=== PATIENT | female | born 1945 | race Caucasian/White ===

== ENCOUNTER 2020-01-01 17:00 | Emergency (ER) | payer SELFPAY ==
[~2020-01-01] VITALS: Ht 162.6 cm; Wt 90.7 kg
[2020-01-01 17:08] VITALS: BP 146/71
[2020-01-01] MEDS ORDERED: IBUP-51 PO (17:08)
[2020-01-01] MEDS ORDERED: NAPROXEN 500 MG TABLET PO SCH (18:00)
[2020-01-01] MEDS ORDERED: HYDROCODONE/APAP 5/325MG TABLET PO ONE (18:00)
[2020-01-01] MEDS ORDERED: HYDROCODONE/APAP 5/325MG TABLET ONE (18:08)
[2020-01-01] MEDS ORDERED: NAPROXEN 250 MG TABLET ONE (18:09)
--- NOTE | 2020-01-01 18:15 | NUR ---
PATIENT CAME BACK FROM RESTROOM. NO DISTRESS NOTED.
--- NOTE | 2020-01-01 19:22 | NUR ---
CD REPORT GIVEN TO THE PATIENT.
== END 2020-01-01 19:58 | disposition home or self-care (01) ==
LOC: ER 17:04
DX: M77.32 Calcaneal spur, left foot (principal); M79.672 Pain in left foot; Z79.899 Other long term (current) drug therapy
CPT/HCPCS: 73630-TC; 73650-TC

== ENCOUNTER 2020-10-01 14:03 | Inpatient (IN) | payer SELFPAY ==
[~2020-10-01] VITALS: Ht 152.4 cm; Wt 86.2 kg
[~2020-10-01 14:03] MED LIST: IBUP-51 PO
[2020-10-01] MEDS ORDERED: IV NS 0.9% 500 ML BAG IV ONE (14:30)
--- NOTE | 2020-10-01 14:52 | NUR ---
MOVE SHEET SUBMITTED.
[2020-10-01 14:55] LABS: BASOPHILS % (AUTO) 0.6 % (0.0-2.0); EOSINOPHILS % (AUTO) 2.4 % (0.0-6.0); HEMATOCRIT 40 % (33-45); HEMOGLOBIN 13.2 g/dL (11.5-14.8); LYMPHOCYTES # (AUTO) 1.8 K/uL (0.8-4.8); LYMPHOCYTES % (AUTO) 34.8 % (20.0-44.0); MEAN CORPUSCULAR HGB CONC 33 g/dl (31.0-36.0); MEAN CORPUSCULAR VOLUME 86 fL (82-100); MONOCYTES # (AUTO) 0.4 K/uL (0.1-1.30); MONOCYTES % (AUTO) 7.2 % (2.0-12.0); NEUTROPHILS # (AUTO) 2.8 K/uL (1.8-8.9); PLATELET COUNT (AUTO) 359 K/uL (150-450); RED BLOOD CELL COUNT(AUTO) 4.72 MIL/uL (4.0-5.2); WHITE BLOOD COUNT (AUTO) 5.1 K/uL (4.3-11.0)
[2020-10-01] MEDS ORDERED: CLOP75TA15 PO (15:01)
[2020-10-01] MEDS ORDERED: GABA-532 PO (15:01)
[2020-10-01 15:11] LABS: ALANINE AMINOTRANSFERASE 19 U/L (12-78); ALBUMIN 3.6 g/dL (3.4-5.0); ALKALINE PHOSPHATASE 93 U/L (46-116); ASPARTATE AMINOTRANSFERASE 13 U/L (15-37); BILIRUBIN,DIRECT 0.1 mg/dL (0.0-0.2); BILIRUBIN,TOTAL 0.4 mg/dL (0.2-1.0); CARBON DIOXIDE 28 mmol/L (21-32); CHLORIDE 108 mmol/L (98-107); CREATININE 0.9 mg/dL (0.6-1.3); GLUCOSE 103 mg/dL (74-106); POTASSIUM 3.7 mmol/L (3.5-5.1); SODIUM SERUM 145 mmol/L (136-145); TOTAL PROTEIN, SERUM 7.8 g/dL (6.4-8.2); UREA NITROGEN, BLOOD 17 mg/dL (7-18)
[2020-10-01] MEDS ORDERED: MAGNESIUM HYDROXIDE 30 ML UDC PO PRN (16:30)
[2020-10-01] MEDS ORDERED: HYDROCODONE/APAP 5/325MG TABLET PO PRN (16:30)
[2020-10-01] MEDS ORDERED: TEMAZEPAM 15 MG CAPSULE PO PRN (16:30)
[2020-10-01] MEDS ORDERED: MAG HYDROX/AL HYDROX/SIMETH 30 ML UDC PO PRN (16:30)
[2020-10-01] MEDS ORDERED: Z GUARD REMEDY 2 OZ OINT TP PRN (16:30)
[2020-10-01] MEDS ORDERED: ACETAMINOPHEN 325 MG TABLET PO PRN (16:30)
[2020-10-01] MEDS ORDERED: ONDANSETRON HCL/PF 4 MG/2 ML VIAL IVP PRN (16:30)
--- NOTE | 2020-10-01 19:30 | NUR ---
RECEVIED REPORT FROM DAY SHIFT FOR SALVADOR. PATIENT VSS, WILL CONTINUE TO MONITOR.
--- NOTE | 2020-10-01 21:26 | NUR ---
REPORT GIVEN TO DELIA MANUEL
[2020-10-01 22:00] VITALS: BP 112/70
--- NOTE | 2020-10-01 22:00 | NUR ---
PATIENT TRANSFERRED TO [facility], PATIENT IN NO ACUTE DISTRESS.
[2020-10-01] MEDS: GABAPENTIN 100 MG CAPSULE PO SCH (23:30)
[2020-10-01] MEDS: ENOXAPARIN SODIUM 40 MG/0.4 ML DISP.SYRIN SQ SCH (23:31)
--- NOTE | 2020-10-02 06:02 | NUR ---
MS RN CLOSING NOTES: PATIENT IN BED,ASLEEP,EASILY AROUSABLE. NO S/S OF DISTRESS NOTED. CALL LIGHT WITHIN REACH. BED ALARM ON. BED IN LOWEST AND LOCKED POSITION. AMBULATORY, WITH UNSTEADY GAIT, OFFERED A BEDSIDE COMMODE , PATIENT DECLINED, WANTS TO USE THE TOILET. ASSISTED TO THE BATHROOM AND BACK TO THE BED.
[2020-10-02 07:30] LABS: BASOPHILS % (AUTO) 0.7 % (0.0-2.0); EOSINOPHILS % (AUTO) 3.3 % (0.0-6.0); HEMATOCRIT 38 % (33-45); HEMOGLOBIN 12.5 g/dL (11.5-14.8); LYMPHOCYTES # (AUTO) 2.6 K/uL (0.8-4.8); LYMPHOCYTES % (AUTO) 48.3 % (20.0-44.0); MEAN CORPUSCULAR HGB CONC 33 g/dl (31.0-36.0); MEAN CORPUSCULAR VOLUME 85 fL (82-100); MONOCYTES # (AUTO) 0.4 K/uL (0.1-1.30); MONOCYTES % (AUTO) 8.1 % (2.0-12.0); NEUTROPHILS # (AUTO) 2.1 K/uL (1.8-8.9); NEUTROPHILS % (AUTO) 39.6 % (43.0-81.0); PLATELET COUNT (AUTO) 341 K/uL (150-450); RED BLOOD CELL COUNT(AUTO) 4.49 MIL/uL (4.0-5.2); WHITE BLOOD COUNT (AUTO) 5.3 K/uL (4.3-11.0)
--- NOTE | 2020-10-02 07:47 | NUR ---
MS RN OPENING NOTES RECEIVED PATIENT IN BED, ASLEEP. PATIENT ON ROOM AIR; BREATHING EVEN AND UNLABORED AT THIS TIME, NO SOB PRESENT. NO S/S OF PAIN SUCH FACIAL GRIMACING, MOANING OR GUARDING NOTED. RAC IV ACCESS;SL PRESENT. SAFETY PRECAUTIONS IN PLACE; BED IN LOW POSITION AND LOCKED, RAILS UP X2, CALL LIGHT WITHIN REACH. WILL CONTINUE TO MONITOR PATIENT.
[2020-10-02 07:54] LABS: CALCIUM, SERUM 8.7 mg/dL (8.5-10.1); CREATININE 0.6 mg/dL (0.6-1.3); MAGNESIUM 2.3 mg/dL (1.8-2.4); PHOSPHORUS 3.8 mg/dL (2.5-4.9); POTASSIUM 3.4 mmol/L (3.5-5.1)
[2020-10-02 08:00] VITALS: BP 126/67
[2020-10-02 08:02] LABS: THYROID STIMULATING HORMONE 1.042 uIU/mL (0.358-3.74)
[2020-10-02] MEDS: GABAPENTIN 100 MG CAPSULE PO SCH ×3 (08:18→16:06)
[2020-10-02] MEDS: PANTOPRAZOLE 40 MG TABLET.DR PO SCH (08:18)
[2020-10-02] MEDS: CLOPIDOGREL BISULFATE 75 MG TABLET PO SCH (08:18)
[2020-10-02] MEDS ORDERED: POTASSIUM CHLORIDE 20 MEQ TAB.PRT.SR PO ONE (10:00)
--- NOTE | 2020-10-02 11:44 | NUR ---
MS RN NOTES PATIENT IS ONLY MONGOLIAN SPEAKING; CALLED FAMILY FOR TRANSLATION REGARDING MRI OF THE BRAIN. DAUGHTER HAS POOR [place]VI[place] WELL AND ASKED HER UNCLE TO TRANSLATE. PATIENT AND FAMILY WANT SOMEONE PRESENT TO SIGN THE MRI CONSENT AND ALSO TO ACCOMPANY HER TO THE PROCEDURE. MRI NOTIFIED.
[2020-10-02 16:00] VITALS: BP 104/55
--- NOTE | 2020-10-02 16:20 | NUR ---
MS RN NOTES PATIENT LEFT FOR MRI
--- NOTE | 2020-10-02 18:41 | NUR ---
MS RN CLOSING NOTES PATIENT REMAINS IN BED, AWAKE, WITH FAMILY AT BEDSIDE. PATIENT ON ROOM AIR; BREATHING EVEN AND UNLABORED AT THIS TIME, NO SOB PRESENT. NO COMPLAINS OF PAIN DURING THE DAY. RAC IV ACCESS;SL PRESENT. ALL NEEDS ATTENDED DURING THE DAY. SAFETY PRECAUTIONS IN PLACE; BED IN LOW POSITION AND LOCKED, RAILS UP X2, CALL LIGHT WITHIN REACH. WILL ENDORSE TO MESH MAN NURSE.
--- NOTE | 2020-10-02 19:15 | NUR ---
MS RN OPENING NOTES: RECEIVED PATIENT IN BED, AWAKE, SITTING AT THE EDGE OF THE BED EATING DINNER WITH THE DAUGHTER AT THE BEDSIDE. NO S/S OF DISTRESS NOTED. CALL LIGHT WITHIN REACH. BED IN LOWEST AND LOCKED POSITION. INSTRUCTED DAUGHTER TO TELL THE PATIENT TO USE THE WALKER WHEN OOB AND TO CALL FOR ASSISTANCE WHEN OOB,PATIENT VERBALIZED UNDERSTANDING.
[2020-10-02 20:00] VITALS: BP 118/82
[2020-10-02] MEDS: ENOXAPARIN SODIUM 40 MG/0.4 ML DISP.SYRIN SQ SCH (22:03)
--- NOTE | 2020-10-03 05:56 | NUR ---
PATIENT REFUSED THE LAB DRAW THIS MORNING, CALLED THE DAUGHTER EDGARDO TO TRANSLATE AND TO ENCOURAGE THE PATIENT. PATIENT STILL REFUSED. MD WILL NOTIFY.
--- NOTE | 2020-10-03 06:49 | NUR ---
MS RN CLOSING NOTES: PATIENT IS RESTING IN BED, A/O X3. NO S/S OF DISTRESS NOTED.CALL LIGHT WITHIN REACH. BED ALARM ON. BED IN LOWEST AND LOCKED POSITION. AMBULATORY WITH WALKER, STEADY GAIT. NO COMPLAIN OF PAIN.
--- NOTE | 2020-10-03 07:30 | NUR ---
on rounds find pt. alert and oriented x3,mohawk speaking.no complaints offered.trying to get oob,attempted to set bed alarm and pt. fighting nurse.
[2020-10-03 08:00] VITALS: BP 131/85
[2020-10-03] MEDS: GABAPENTIN 100 MG CAPSULE PO SCH (09:35)
[2020-10-03] MEDS: PANTOPRAZOLE 40 MG TABLET.DR PO SCH (09:35)
[2020-10-03] MEDS: CLOPIDOGREL BISULFATE 75 MG TABLET PO SCH (09:35)
--- NOTE | 2020-10-03 10:15 | NUR ---
noted no hep lock rt.ac,apparently pt. removed.pt. continually trying to get oob.
--- NOTE | 2020-10-03 10:25 | NUR ---
vandana bach printing press operator apprentice in and dc order given.pt. on phone calling dtr.dtr. here given all dc instructions,all papers signed.lab here drawing earlier labs pt. had refused.given all papers including rxs.taken to lobby via w/c acc. by dtr. and faculty head.
[2020-10-03 11:46] LABS: CALCIUM, SERUM 8.8 mg/dL (8.5-10.1); CREATININE 0.8 mg/dL (0.6-1.3); POTASSIUM 3.5 mmol/L (3.5-5.1)
== END 2020-10-03 10:30 | disposition home or self-care (01) | DRG 948 ==
LOC: ER 14:05 → TELE 21:10 → MED 22:21
PROVIDERS: ADMIT Nurse Practitioner Acute Care; ATTEND Nurse Practitioner Acute Care
DX: R53.1 Weakness (principal); E66.9 Obesity, unspecified; Z68.32 Body mass index [BMI] 32.0-32.9, adult; Z91.81 History of falling; Z79.02 Long term (current) use of antithrombotics/antiplatelets; Z79.899 Other long term (current) drug therapy; Z98.890 Other specified postprocedural states; I67.2 Cerebral atherosclerosis; I70.0 Atherosclerosis of aorta
CPT/HCPCS: 36415; 70450-TC; 70551-TC; 71045-TC; 80048-TC; 80061-TC; 80076-TC; 82962-TC; 83735-TC; 83880; 84100-TC; 84443-TC; 84484-TC; 85025-TC; 87081-TC; 93307-TC; 97112-TC; 97116-TC; 97530-TC; C9803; G0378; J1650; J7040

== ENCOUNTER 2021-02-02 15:55 | Emergency (ER) | payer MEDICAID ==
[~2021-02-02] VITALS: Ht 152.4 cm; Wt 65.8 kg
[~2021-02-02 15:55] MED LIST changes: +CLOP75TA15 PO; +GABA-532 PO; -IBUP-51 PO
[2021-02-02 16:10] VITALS: BP 132/79
[2021-02-02] MEDS ORDERED: ATOR20TA PO (16:23)
== END 2021-02-02 16:35 | disposition home or self-care (01) ==
LOC: EDUNIT# 15:55 → ER 15:58
DX: Z76.0 Encounter for issue of repeat prescription (principal); Z79.899 Other long term (current) drug therapy; Z86.73 Personal history of transient ischemic attack (TIA), and cerebral infarction without residual deficits

== ENCOUNTER 2021-03-17 22:00 | Emergency (ER) | payer MEDICAID ==
[~2021-03-17] VITALS: Ht 170.2 cm; Wt 74.8 kg
[~2021-03-17 22:00] MED LIST changes: +ATOR20TA PO
[2021-03-17 22:15] VITALS: BP 135/69
[2021-03-17] MEDS ORDERED: ATOR20TA PO (22:28)
--- NOTE | 2021-03-17 22:33 | NUR ---
Patient discharged to home in stable condition. Written and verbal after care instructions given. Patient verbalizes understanding of instruction. RX GIVEN
== END 2021-03-18 05:20 | disposition home or self-care (01) ==
LOC: ER 22:01
DX: Z76.0 Encounter for issue of repeat prescription (principal); Z86.73 Personal history of transient ischemic attack (TIA), and cerebral infarction without residual deficits; Z79.899 Other long term (current) drug therapy

== ENCOUNTER 2021-05-01 17:30 | Inpatient (IN) | payer MEDICAID ==
[~2021-05-01] VITALS: Ht 157.5 cm; Wt 81.6 kg
--- NOTE | 2021-05-01 17:42 | NUR ---
BIB DAUGHTER C/O DIZZINESS, FOREHEAD INJURY S/P GLF. PER PT DAUGHTER PT HAVING FREQUENT FALLS FOR THE PAST MONTH. DENIES PAIN. IN ROOM AIR AND DENIES SOB. RESPIRATION REGULAR AND UNLABORED. ATTACHED TO THE MONITOR. WARM BLANKET PROVIDED FOR COMFORT. WILL CONTINUE TO MONITOR THE PATIENT.
--- NOTE | 2021-05-01 17:43 | NUR ---
SALINE LOCK ESTABLISHED, BLOOD DRAWN AND CALLED LAB FOR PUTTY WORKER
--- NOTE | 2021-05-01 17:52 | NUR ---
COVID ANTIGEN SWAB DONE AND SENT TO THE LAB
--- NOTE | 2021-05-01 18:10 | NUR ---
THE PATIENT IS TAKEN TO CT VIA W/CHAIR
[2021-05-01 18:15] LABS: BASOPHILS % (AUTO) 0.8 % (0.0-2.0); EOSINOPHILS % (AUTO) 1.7 % (0.0-6.0); HEMATOCRIT 38 % (33-45); HEMOGLOBIN 12.4 g/dL (11.5-14.8); LYMPHOCYTES # (AUTO) 2.2 K/uL (0.8-4.8); LYMPHOCYTES % (AUTO) 42.1 % (20.0-44.0); MEAN CORPUSCULAR HGB CONC 33 g/dl (31.0-36.0); MEAN CORPUSCULAR VOLUME 84 fL (82-100); MONOCYTES # (AUTO) 0.4 K/uL (0.1-1.30); MONOCYTES % (AUTO) 6.9 % (2.0-12.0); NEUTROPHILS # (AUTO) 2.6 K/uL (1.8-8.9); NEUTROPHILS % (AUTO) 48.5 % (43.0-81.0); PLATELET COUNT (AUTO) 412 K/uL (150-450); RED BLOOD CELL COUNT(AUTO) 4.53 MIL/uL (4.0-5.2); WHITE BLOOD COUNT (AUTO) 5.3 K/uL (4.3-11.0)
--- NOTE | 2021-05-01 18:15 | NUR ---
THE PATIENT IS BACK FROM CT VIA W/CHAIR
[2021-05-01 18:36] LABS: CALCIUM, SERUM 9.1 mg/dL (8.5-10.1); CARBON DIOXIDE 29 mmol/L (21-32); CHLORIDE 102 mmol/L (98-107); CREATININE 0.9 mg/dL (0.6-1.3); GLUCOSE 145 mg/dL (74-106); POTASSIUM 3.8 mmol/L (3.5-5.1); SODIUM SERUM 135 mmol/L (136-145); UREA NITROGEN, BLOOD 23 mg/dL (7-18)
[2021-05-01 18:41] LABS: ALANINE AMINOTRANSFERASE 18 U/L (12-78); ALBUMIN 3.7 g/dL (3.4-5.0); ALKALINE PHOSPHATASE 102 U/L (46-116); ASPARTATE AMINOTRANSFERASE 12 U/L (15-37); BILIRUBIN,DIRECT 0.1 mg/dL (0.0-0.2); BILIRUBIN,TOTAL 0.6 mg/dL (0.2-1.0); TOTAL PROTEIN, SERUM 7.9 g/dL (6.4-8.2)
--- NOTE | 2021-05-01 18:46 | NUR ---
URINE COLLECTED AND SENT TO LAB
--- NOTE | 2021-05-01 18:46 | NUR ---
WHEELED OUT VIA RNEY FOR CT SCAN
[2021-05-01] MEDS ORDERED: IV NS 0.9% 1,000 ML BAG IV ONE (19:00)
--- NOTE | 2021-05-01 19:14 | NUR ---
REPORT GIVEN TO NURSE CHEEK FOR SALVDAOR
[2021-05-01 19:22] LABS: BILIRUBIN,URINE NEGATIVE (NEGATIVE); COLOR,URINE YELLOW (YELLOW); LEUKOCYTE ESTERASE ,URINE NEGATIVE (NEGATIVE); NITRITE, URINE NEGATIVE (NEGATIVE); PROTEIN,URINE NEGATIVE (NEGATIVE); UGLUCOSE NEGATIVE (NEGATIVE); UROBILINOGEN,URINE 0.2 EU/dL (0.2)
[2021-05-01 19:40] LABS: BACTERIA,URINE None seen /HPF (None Seen); WBC,URINE 0-2 /HPF (0-3)
[2021-05-01] MEDS ORDERED: MAGNESIUM HYDROXIDE 30 ML UDC PO PRN (20:00)
[2021-05-01] MEDS ORDERED: Z GUARD REMEDY 4 OZ OINT TP PRN (20:00)
[2021-05-01] MEDS ORDERED: ONDANSETRON HCL/PF 4 MG/2 ML VIAL IVP PRN (20:00)
[2021-05-01] MEDS ORDERED: ACETAMINOPHEN 325 MG TABLET PO PRN (20:00)
[2021-05-01] MEDS ORDERED: MAG HYDROX/AL HYDROX/SIMETH 30 ML UDC PO PRN (20:00)
--- NOTE | 2021-05-01 20:28 | NUR ---
RECIEVED BED 323-2
--- NOTE | 2021-05-01 20:32 | NUR ---
UPDATED BED: 307-2
--- NOTE | 2021-05-01 20:37 | NUR ---
REPORT GIVEN TO JOHAN CastellanosW RN FOR SALVADOR
[2021-05-01 21:30] VITALS: BP 132/72
--- NOTE | 2021-05-01 21:30 | NUR ---
SENIOR SUPPORT ENGINEERPHYSICAL THERAPY AID NOTES RECEIVED FROM ER PER KYRA THIS 75 Y.O. FEMALE,ALERT,ORIENTED X1-2,CONFUSED,S/P GROUND LEVEL FALL AT HOME,DX-HEAD TRAUMA,OBESE,WEIGHT 180 LBS,WITH UNSTEADY GAIT,SALINE LOCK LEFT AC INTACT AND PATENT.NOTED BRUISE ON FOREHEAD,LEFT FOREARM,SKIN ABRASION ON LEFT ELBOW SUSTAINED FROM FALL.PER HISTORY FROM DAUGHTER,PATIENT HAS FREQUENT FALL FOR THE PAST MONTHS.ORIENTED TO ROOM SET UP.FALL PRECAUTION OBSERVED,BED ALARM TRIGGERED,BED ON LOWEST POSITION AND LOCKED,CALL LIGHT IN REACH,NEEDS ANTICIPATED.
--- NOTE | 2021-05-01 21:32 | NUR ---
PT TAKEN TO 3W 307 VIA ACLS PROTOCOL. VSS. PT TOLERATED TRANSFER WELL
--- NOTE | 2021-05-01 22:00 | NUR ---
BURSAR NOTES STARTED ON LIPITOR 20MG PO,TAKEN WELL.
[2021-05-01] MEDS: ATORVASTATIN 10 MG TABLET PO SCH (22:20)
[2021-05-02] VITALS: BP 126/72
--- NOTE | 2021-05-02 | NUR ---
DESIGN CHECKER NOTES CALL FREQUENTLY TO USE THE BATHROOM,UNSTEADY GAIT,REFUSED TO USE THE BEDSIDE COMMODE.WALK TO THE RESTROOM WITH WALKER WITH ASSIST.
[2021-05-02] MEDS ORDERED: QUETIAPINE FUMARATE 25 MG TABLET PO ONE (02:00)
--- NOTE | 2021-05-02 02:00 | NUR ---
RESEARCH AND EVALUATION ANALYST NOTES CALL LIKE EVERY FIVE MINUTES,VERY RESTLESS,HOSPITALIST GAS GOLF CART REPAIRER MADE AWARE,WITH NEW ORDER NOTED AND CARRIED OUT.
--- NOTE | 2021-05-02 02:41 | NUR ---
MS RN NOTES RESTLESS,GIVEN SEROQUEL 25MG PO X 1 DOSE ORDERED BY HOSPITALIST RADHAMES
[2021-05-02 04:00] VITALS: BP 120/76
--- NOTE | 2021-05-02 06:45 | NUR ---
CARTON FOLDER NOTES SLEEPING THIS TIME,MORNING BLOOD DRAW REFUSED,FALL RISK,MIGHT NEEDS SITTER FOR SAFETY.SALINE LOCK RIGHT AC INTACT AND PATENT. IN NO ACUTE DISTRESS.
--- NOTE | 2021-05-02 07:30 | NUR ---
CAUSTIC LOADER OPENING NOTES. RECEIVED PATIENT IN BED AWAKE. ALERT AND ORIENTED TIMES 2-3 WITH EPISODES OF CONFUSION. TURKISH SPEAKER. ASSISTED HER TO BATHROOM WITH WALKER FOR URINATION. ABLE TO WALK WITH WALKER AND ASSISTANCE. NO PAIN NOTED. NO DISTRESS NOTED. IV SITE ON THE LEFT AC # 20 INTACT. ON TELE MONITOR. BRUISE NOTED ON HER FOREHEAD AND LEFT FOREARM. SKIN ABRASION NOTED ON THE LEFT ELBOW. BED LOCKED IN THE LOWEST POSITION, SIDE RAILS UP TIMES 2. CALL LIGHT AND TABLE WITHIN REACH. NEURO CHECKS DONE. NO NAUSEA NO VOMITING NOTED. WILL CONTINUE TO MONITOR.
[2021-05-02 08:11] VITALS: BP 142/72
[2021-05-02] MEDS: GABAPENTIN 100 MG CAPSULE PO SCH ×3 (08:23→16:44)
[2021-05-02] MEDS ORDERED: PANTOPRAZOLE 40 MG VIAL IV SCH (09:00)
[2021-05-02 09:56] LABS: BASOPHILS % (AUTO) 0.7 % (0.0-2.0); EOSINOPHILS % (AUTO) 2.8 % (0.0-6.0); HEMATOCRIT 37 % (33-45); HEMOGLOBIN 11.8 g/dL (11.5-14.8); LYMPHOCYTES # (AUTO) 2.6 K/uL (0.8-4.8); LYMPHOCYTES % (AUTO) 48.9 % (20.0-44.0); MEAN CORPUSCULAR HGB CONC 32 g/dl (31.0-36.0); MEAN CORPUSCULAR VOLUME 84 fL (82-100); MONOCYTES # (AUTO) 0.6 K/uL (0.1-1.30); MONOCYTES % (AUTO) 10.4 % (2.0-12.0); NEUTROPHILS % (AUTO) 37.2 % (43.0-81.0); PLATELET COUNT (AUTO) 370 K/uL (150-450); RED BLOOD CELL COUNT(AUTO) 4.34 MIL/uL (4.0-5.2); WHITE BLOOD COUNT (AUTO) 5.4 K/uL (4.3-11.0)
[2021-05-02 10:30] LABS: CALCIUM, SERUM 8.9 mg/dL (8.5-10.1); CREATININE 0.8 mg/dL (0.6-1.3); PHOSPHORUS 3.9 mg/dL (2.5-4.9); POTASSIUM 3.2 mmol/L (3.5-5.1)
[2021-05-02 10:37] LABS: THYROID STIMULATING HORMONE 1.697 uIU/mL (0.358-3.74)
[2021-05-02 12:08] VITALS: BP 118/72
[2021-05-02] MEDS ORDERED: POTASSIUM CHLORIDE 20 MEQ TAB.PRT.SR PO SCH (13:30)
[2021-05-02 16:33] VITALS: BP 114/61
[2021-05-02] MEDS: MIDODRINE HCL (5MG) 5 MG TABLET PO SCH (16:43)
--- NOTE | 2021-05-02 18:46 | NUR ---
ATHLETIC EQUIPMENT CUSTODIAN CLOSING NOTES. PATIENT IN BED AWAKE. ALERT AND ORIENTED TIMES 2-3 WITH EPISODES OF CONFUSION. ESTONIAN SPEAKER. ASSISTED HER TO BATHROOM WITH WALKER FOR URINATION. ABLE TO WALK WITH WALKER AND ASSISTANCE. NO PAIN NOTED. NO DISTRESS NOTED. IV SITE ON THE LEFT AC # 20 INTACT. ON TELE MONITOR. BRUISE NOTED ON HER FOREHEAD AND LEFT FOREARM. SKIN ABRASION NOTED ON THE LEFT ELBOW. BED LOCKED IN THE LOWEST POSITION, SIDE RAILS UP TIMES 2. CALL LIGHT AND TABLE WITHIN REACH. NEURO CHECKS DONE. NO NAUSEA NO VOMITING NOTED. ALL DUE MEDS GIVEN ORDERED .WILL ENDORSE INCOMING NURSE FOR SALVADOR.
--- NOTE | 2021-05-02 19:30 | NUR ---
SPECIAL DIET COOK NOTES RECEIVED LAYING ON BED A/O X2-3,WITH EPISODE OF CONFUSION,REFUSED TELE BOX FOR MONITORING,ON STANDBY MODE,SALINE LOCK LEFT AC INTACT AND PATENT.AMBULATE WITH WALKER AND ASSISTED TO THE RESTROOM.MORE ALERT,CAN REALLY COMMUNICATE IN [place].ALWAYS ON THE PHONE TALKING TO HER DAUGHTER.FALL PRECAUTION OBSERVED,BED ON LOW POSITION AND LOCKED,BED ALARM,CALL LIGHT IN REACH,NEEDS ANTICIPATED.
[2021-05-02 20:00] VITALS: BP 129/73
[2021-05-02] MEDS: ATORVASTATIN 10 MG TABLET PO SCH (23:01)
[2021-05-03] VITALS (8 sets, daily range): BP systolic 104–134; BP diastolic 62–81
[2021-05-03 05:56] LABS: BASOPHILS # (AUTO) 0.1 K/uL (0.0-0.2); BASOPHILS % (AUTO) 1.6 % (0.0-2.0); EOSINOPHILS % (AUTO) 2.2 % (0.0-6.0); HEMATOCRIT 39 % (33-45); HEMOGLOBIN 12.8 g/dL (11.5-14.8); LYMPHOCYTES # (AUTO) 2.8 K/uL (0.8-4.8); LYMPHOCYTES % (AUTO) 48.4 % (20.0-44.0); MEAN CORPUSCULAR HGB CONC 33 g/dl (31.0-36.0); MEAN CORPUSCULAR VOLUME 84 fL (82-100); MONOCYTES # (AUTO) 0.4 K/uL (0.1-1.30); MONOCYTES % (AUTO) 7.2 % (2.0-12.0); NEUTROPHILS # (AUTO) 2.4 K/uL (1.8-8.9); NEUTROPHILS % (AUTO) 40.6 % (43.0-81.0); PLATELET COUNT (AUTO) 428 K/uL (150-450); RED BLOOD CELL COUNT(AUTO) 4.64 MIL/uL (4.0-5.2); WHITE BLOOD COUNT (AUTO) 5.8 K/uL (4.3-11.0)
--- NOTE | 2021-05-03 06:27 | NUR ---
HANDSTITCHING MACHINE COLLAR FELLER NOTES LAYING ON BED,A/O X3,STILL REFUSING TELE MONITOR,SHE'S MORE QUIET AND FOLLOW INSTRUCTIONS,NO FALL,NO INJURY,CALL LIGHT IN REACH,NEEDS ATTENDED.
--- NOTE | 2021-05-03 06:59 | NUR ---
SALES AGENT INSURANCE OPENING NOTES. RECEIVED PATIENT IN BED RESTING. PATIENT IS ALERT AND ORIENTED TIMES 2-3 WITH EPISODES OF CONFUSION. PATIENT IS BREATHING EVENLY AND NONLABORED ON ROOM AIR. NO PAIN NOTED. NO DISTRESS NOTED. IV SITE ON THE LEFT AC # 20 INTACT. ON TELE MONITOR. BRUISE NOTED ON HER FOREHEAD AND LEFT FOREARM. SKIN ABRASION NOTED ON THE LEFT ELBOW. BED LOCKED IN THE LOWEST POSITION, SIDE RAILS UP TIMES 2. CALL LIGHT AND TABLE WITHIN REACH. PATIENT REMINDED TO USE CALL LIGHT BEFORE SHE GETS UP. WILL CONTINUE TO MONITOR.
[2021-05-03 07:30] LABS: ALBUMIN 3.6 g/dL (3.4-5.0); BILIRUBIN,TOTAL 0.5 mg/dL (0.2-1.0); CALCIUM, SERUM 9.3 mg/dL (8.5-10.1); CREATININE 0.9 mg/dL (0.6-1.3); MAGNESIUM 2.3 mg/dL (1.8-2.4); POTASSIUM 3.8 mmol/L (3.5-5.1); TOTAL PROTEIN, SERUM 7.7 g/dL (6.4-8.2)
[2021-05-03] MEDS: GABAPENTIN 100 MG CAPSULE PO SCH ×3 (08:33→16:08)
[2021-05-03] MEDS: PANTOPRAZOLE 40 MG TABLET.DR PO SCH (08:33)
[2021-05-03] MEDS: MIDODRINE HCL (5MG) 5 MG TABLET PO SCH ×3 (08:33→16:08)
[2021-05-03] MEDS ORDERED: IV NS 0.9% 1,000 ML IV PRN (13:30)
--- NOTE | 2021-05-03 15:01 | NUR ---
RN NOTE IV ACCESS NOTED TO BE DISLODGED, NEW IV INSERTED ON RAC # 20 GAUGE PATENT AND INTACT.
--- NOTE | 2021-05-03 18:27 | NUR ---
CAR WRECKER CLOSING NOTES. PATIENT IN BED RESTING. PATIENT IS ALERT AND ORIENTED TIMES 2-3 WITH EPISODES OF CONFUSION. PATIENT IS BREATHING EVENLY AND NONLABORED ON ROOM AIR. NO PAIN NOTED. NO DISTRESS NOTED. IV SITE ON THE RIGHT AC # 20 INTACT. ON TELE MONITOR. BRUISE NOTED ON HER FOREHEAD AND LEFT FOREARM. SKIN ABRASION NOTED ON THE LEFT ELBOW. ALL MEDICATIONS GIVEN ORDERED. PATIENT KEPT CLEAN AND DRY. BED LOCKED IN THE LOWEST POSITION, SIDE RAILS UP TIMES 2. CALL LIGHT AND TABLE WITHIN REACH. PATIENT REMINDED TO USE CALL LIGHT BEFORE SHE GETS UP. WILL ENDORSE TO ONCOMING SHIFT.
--- NOTE | 2021-05-03 19:15 | NUR ---
DISTRIBUTION OPERATION SUPERVISOR OPENING NOTES: RECEIVED PATIENT RESTING IN BED, AWAKE, [place] SPEAKING ONLY. ANXIOUS, WANTS TO GO TO THE BATHROOM, POINTING TO THE BATHROOM, WALKED TO THE BATHROOM WITH THE WALKER STEADY GAIT, WITH STAND BY ASSIST. NO S/S OF DISTRESS NOTED. NO COMPLAIN OF PAIN. CALL LIGHT WITHIN REACH. BED ALARM ON. BED IN LOWEST AND LOCKED POSITION.
--- NOTE | 2021-05-03 20:57 | NUR ---
RECEIVED PATIENT WITH NO TELE MONITOR, ACCORDING TO THE METAL BUMPER, PATIENT REFUSED.
[2021-05-03] MEDS: ATORVASTATIN 10 MG TABLET PO SCH (21:17)
--- NOTE | 2021-05-03 23:00 | NUR ---
COUNTY MANAGER tried to put the tele monitor leads to the patient, patient refused.
[2021-05-04] VITALS: BP 110/74
[2021-05-04 00:39] VITALS: BP 110/74
[2021-05-04 04:00] VITALS: BP 118/73
--- NOTE | 2021-05-04 04:11 | NUR ---
patient pulled her IV out.
--- NOTE | 2021-05-04 05:24 | NUR ---
PATIENT REFUSED IV REINSERTION.
--- NOTE | 2021-05-04 07:21 | NUR ---
SERVICE CLERK OPENING NOTES. RECEIVED PATIENT IN BED RESTING. PATIENT IS ALERT AND ORIENTED TIMES 2-3 WITH EPISODES OF CONFUSION. PATIENT IS BREATHING EVENLY AND NONLABORED ON ROOM AIR. NO PAIN NOTED. NO DISTRESS NOTED. IV SITE WAS REMOVED LAST NIGHT. PATIENT IS REFUSING REINSERTION. PATIENT IS ALSO REFUSING TELE MONITOR. EXPLAINED RISK AND BENEFITS WITH DAUGHTER ON PHONE PATIENT STILL REFUSED. BRUISE NOTED ON HER FOREHEAD AND LEFT FOREARM. SKIN ABRASION NOTED ON THE LEFT ELBOW. BED LOCKED IN THE LOWEST POSITION, SIDE RAILS UP TIMES 2. CALL LIGHT AND TABLE WITHIN REACH. PATIENT REMINDED TO USE CALL LIGHT BEFORE SHE GETS UP. WILL CONTINUE TO MONITOR.
[2021-05-04] MEDS: GABAPENTIN 100 MG CAPSULE PO SCH ×2 (08:18→12:10)
[2021-05-04] MEDS: MIDODRINE HCL (5MG) 5 MG TABLET PO SCH ×2 (08:19→12:10)
[2021-05-04] MEDS: PANTOPRAZOLE 40 MG TABLET.DR PO SCH (08:19)
--- NOTE | 2021-05-04 09:17 | NUR ---
RN NOTE PATIENT SCREAMING TO LEAVE THE BUILDING DAUGHTER CALLED X8 TIMES NO ANSWER. BROTHER ANSWERED, STATED PATIENT WOULD NOT LISTEN TO HIM. PATIENT HITTING STAFF AND SCREAMING. TAKEN BACK TO BED. SIDE RAILS UP. NOTIFIED.
--- NOTE | 2021-05-04 10:24 | NUR ---
RN NOTE PATIENT SCREAMING HITTING STAFF. PATIENT IS NOT REDIRECTABLE. FAMILY CALLED AND HUNG UP. MD BIGGS GAVE NEW ORDER FOR ZYPREXA 5 MG IM X1. WILL CONTINUE TO MONITOR
[2021-05-04] MEDS ORDERED: OLANZAPINE 10 MG VIAL IM ONE ×3 (10:30→11:30)
--- NOTE | 2021-05-04 10:51 | NUR ---
RN NOTE PATIENT HITTING STAFF, ZYPREXA NOT EFFECTIVE. FAMILY CALLED AGAIN NO ANSWER MD NOTIFIED GAVE NEW ORDER FOR 1:1 SITTER.
--- NOTE | 2021-05-04 11:20 | NUR ---
RN NOTE PATIENT SCREAMING HITTING STAFF MD AT BEDSIDE GAVE ONE TIME ORDER FOR ZYPREXA 5MG X 1.
[2021-05-04 12:10] VITALS: BP 122/76
[2021-05-04] MEDS ORDERED: QUETIAPINE FUMARATE 25 MG TABLET PO PRN (16:00)
--- NOTE | 2021-05-04 16:40 | NUR ---
REINFORCING ROD LAYER NOTE RECEIVED TRB ORDER FOR DISCHARGE. PATIENT IS A/O X2 WITH CONFUSION. PATIENT IS BREATHING EVENLY AND NONLABORED ON ROOM AIR. NO SIGNS OF PAIN. FAMILY WANTED TO SUPERVISOR ALUMINUM BOAT ASSEMBLY PATIENT AND NOT WAIT FOR PAPERWORK STATED SHE NEEDED TO SUPERVISOR ALUMINUM BOAT ASSEMBLY HER CHILDREN. GAVE VERBAL DISCHARGE INSTRUCTIONS THAT PATIENT NEEDED TO SEE PRIMACY CARE PHYSICIAN. PATIENT HAD NO IV ACCESS TO REMOVE. PATIENT IN CALM MANNER. FAMILY VERBALIZED UNDERSTANDING. PATIENT LEFT IN STABLE CONDITION VIA PRIVATE CAR
--- NOTE | 2021-05-04 18:05 | NUR ---
RN NOTE BROTHER AND DAUGHTER CALLED STATING MOM IS TIRED. BROTHER IS STATING THAT PATIENT LOOKED OKAY JUST TIRED. WE ADVISED HER TO WATCH CLOSELY. STATED WE COULD NOT GIVE ANY ADVICE OVER THE PHONE STATED TO BRING HER BACK TO ER IF THERE IS A MEDICAL EMERGENCY.
== END 2021-05-04 16:56 | disposition home or self-care (01) | DRG 204 ==
LOC: ER 17:30 → MED 20:45 → TELE 21:29
PROVIDERS: ADMIT Registered Nurse; ATTEND Registered Nurse
DX: I95.1 Orthostatic hypotension (principal); E66.8 Other obesity; E86.0 Dehydration; R29.6 Repeated falls; Z68.33 Body mass index [BMI] 33.0-33.9, adult; Z86.73 Personal history of transient ischemic attack (TIA), and cerebral infarction without residual deficits; R79.89 Other specified abnormal findings of blood chemistry; Z20.822 Contact with and (suspected) exposure to COVID-19
CPT/HCPCS: 36415; 70450-TC; 71045-TC; 72125-TC; 80048-TC; 80053-TC; 80061-TC; 80076-TC; 81001; 83735-TC; 83880; 84100-TC; 84443-TC; 84484-TC; 85025-TC; 85730-TC; 87081-TC; 93307-TC; 93880-TC; 97112-TC; 97116-TC; 97530-TC; C9113; C9803; G0378; J3490; J7030

== ENCOUNTER 2021-05-06 03:06 | Emergency (ER) | payer MEDICAID ==
[~2021-05-06] VITALS: Ht 167.6 cm; Wt 74.8 kg
--- NOTE | 2021-05-06 03:31 | NUR ---
BIBBROTHER C/O GLF +HEAD TRUAMA UNKNOWN KO. DISCOLORATION TO FOREHEAD, NOSE AND R CHEEK. C/O RIGHT HAND PAIN +BRUISING JENAE HAND BELOW RING/PINKY +BLOOD THINNER. PT AWAKE AND ALERT. TOLERATING R/A WELL WITH NO SOB. PT IN GOWN. SAFETY MEASURES IN PLACE.
--- NOTE | 2021-05-06 03:52 | NUR ---
HARD C-COLLAR APPLIED. PT TOLERATING WELL
[2021-05-06] MEDS ORDERED: HYDROCODONE/APAP 5/325MG TABLET PO ONE (04:00)
[2021-05-06] MEDS ORDERED: TDAP [DIPH/PERTUSSIS/TET] 0.5 ML VIAL IM ONE ×2 (04:00→04:04)
[2021-05-06] MEDS ORDERED: HYDROCODONE/APAP 5/325MG TABLET ONE (04:03)
--- NOTE | 2021-05-06 04:19 | NUR ---
PT RETURNED TO ER BED [address]
[2021-05-06] MEDS ORDERED: HYDR-3972 PO (05:07)
[2021-05-06 05:31] VITALS: BP 126/60
--- NOTE | 2021-05-06 05:31 | NUR ---
Patient discharged to home in stable condition. Written and verbal after care instructions given. Patient verbalizes understanding of instruction.
== END 2021-05-06 05:32 | disposition home or self-care (01) ==
LOC: ER 03:20
DX: S62.644A Nondisplaced fracture of proximal phalanx of right ring finger, initial encounter for closed fracture (principal); S62.646A Nondisplaced fracture of proximal phalanx of right little finger, initial encounter for closed fracture; S00.33XA Contusion of nose, initial encounter; S00.83XA Contusion of other part of head, initial encounter; R29.6 Repeated falls; Z86.73 Personal history of transient ischemic attack (TIA), and cerebral infarction without residual deficits; Z79.891 Long term (current) use of opiate analgesic; Z79.899 Other long term (current) drug therapy; W18.30XA Fall on same level, unspecified, initial encounter; Y93.89 Activity, other specified; Y92.89 Other specified places as the place of occurrence of the external cause; Y99.8 Other external cause status
CPT/HCPCS: 29125; 70450; 70486; 72125; 73130; 99284; L0172; 90715

== ENCOUNTER 2021-06-22 00:10 | Emergency (ER) | payer MEDICAID ==
[~2021-06-22] VITALS: Ht 167.6 cm; Wt 69.9 kg
[~2021-06-22 00:10] MED LIST changes: +HYDR-3972 PO
[2021-06-22] MEDS ORDERED: ATOR20TA PO (00:54)
--- NOTE | 2021-06-22 01:02 | NUR ---
BIBDAUGHTER C/O L SIDE RIB PAIN S/P FELL YESTERDAY +MED REFILL FOR ATOR 20MG . PT TOLERATING R/A WITH NO SOB. PT AMBULATORY WITH ASSIST.
--- NOTE | 2021-06-22 01:52 | NUR ---
PRESCHOOL TEACHER'S ASSISTANT AT PT'S BEDSIDE
[2021-06-22] MEDS ORDERED: IBUP-1957 PO (02:19)
--- NOTE | 2021-06-22 02:44 | NUR ---
Patient discharged to home in stable condition. Written and verbal after care instructions given to family. Patient & family verbalizes understanding of instruction.
[2021-06-22 02:48] VITALS: BP 125/65
== END 2021-06-22 02:48 | disposition home or self-care (01) ==
LOC: ER 00:11
DX: R07.81 Pleurodynia (principal); Z76.0 Encounter for issue of repeat prescription; Z86.73 Personal history of transient ischemic attack (TIA), and cerebral infarction without residual deficits; Z79.899 Other long term (current) drug therapy
CPT/HCPCS: 71100-TC

== ENCOUNTER 2021-09-09 21:54 | Emergency (ER) | payer BC, MEDICAID ==
[~2021-09-09] VITALS: Ht 154.9 cm; Wt 90.7 kg
[~2021-09-09 21:54] MED LIST changes: +IBUP-1957 PO
--- NOTE | 2021-09-09 22:45 | NUR ---
ELAINE FRM HOME C/O R CLAVICLE PAIN S/P GLF FRM TRIPPING -KO -HEAD TRAUMA. PT AWAKE AND RESPONSIVE; LOC WNL NEURO CHECK DONE. TOLERATING R/A WELL; RESP EVEN AND NON LABORED. SAFETY MEASURES IN PLACE.
--- NOTE | 2021-09-09 22:48 | NUR ---
DR. EZRA ZAYAS AT PT'S BEDSIDE
[2021-09-09] MEDS ORDERED: HYDROCODONE/APAP 5/325MG TABLET ONE (22:54)
[2021-09-09] MEDS ORDERED: HYDROCODONE/APAP 5/325MG TABLET PO ONE (23:00)
--- NOTE | 2021-09-09 23:36 | NUR ---
PT TAKEN TO CT VIA KYRA
--- NOTE | 2021-09-09 23:46 | NUR ---
PT RETURNED TO ER BED [address]
--- NOTE | 2021-09-10 00:38 | NUR ---
Patient discharged to home with son in stable condition. Written and verbal after care instructions given. Patient verbalizes understanding of instruction. PT ambulatory with a steady gait
[2021-09-10 00:39] VITALS: BP 155/81
== END 2021-09-10 00:40 | disposition home or self-care (01) ==
LOC: ER 22:04
DX: S13.4XXA Sprain of ligaments of cervical spine, initial encounter (principal); S40.011A Contusion of right shoulder, initial encounter; R29.6 Repeated falls; Z79.899 Other long term (current) drug therapy; W01.0XXA Fall on same level from slipping, tripping and stumbling without subsequent striking against object, initial encounter; Y93.89 Activity, other specified; Y92.89 Other specified places as the place of occurrence of the external cause; Y99.8 Other external cause status
CPT/HCPCS: 72125-TC; 73000-TC

== ENCOUNTER 2021-09-14 11:41 | Emergency (ER) | payer BC ==
[~2021-09-14] VITALS: Ht 149.9 cm; Wt 79.4 kg
--- NOTE | 2021-09-14 11:49 | NUR ---
ELAINE C/O"She fell this am while using her walker- Left side facial injury. Also +Cough". BROUGHT IN VIA WHEELCHAIR, PLACED ON BED, AACX3, BREATHING EVEN AND UNLABORED, KNOWN HISTORY OF STROKE WITH L SIDED WEAKNESS.
--- NOTE | 2021-09-14 11:50 | NUR ---
DR BURGER AT BEDSIDE FOR EVAL
--- NOTE | 2021-09-14 11:57 | NUR ---
PT TAKEN TO RADIOLOGY
[2021-09-14 12:46] VITALS: BP 134/77
--- NOTE | 2021-09-14 12:52 | NUR ---
Patient discharged to home in stable condition. Written and verbal after care instructions given. Patient verbalizes understanding of instruction. Pt w/ family to worm picker.
== END 2021-09-14 12:52 | disposition home or self-care (01) ==
LOC: ER 11:54
DX: S00.83XA Contusion of other part of head, initial encounter (principal); Z79.899 Other long term (current) drug therapy; W18.30XA Fall on same level, unspecified, initial encounter; Y93.89 Activity, other specified; Y92.89 Other specified places as the place of occurrence of the external cause; Y99.8 Other external cause status
CPT/HCPCS: 70450-TC; 71045-TC

== ENCOUNTER 2021-09-25 15:51 | Emergency (ER) | payer BC ==
[~2021-09-25] VITALS: Ht 157.5 cm; Wt 81.3 kg
[2021-09-25] MEDS ORDERED: ETOMIDATE 2 MG/ML VIAL IV ONE ×2 (15:56→16:30)
--- NOTE | 2021-09-25 15:59 | NUR ---
ACTIVATED CODE STROKE
--- NOTE | 2021-09-25 16:04 | NUR ---
TELEMED [employer] REQUEST SENT, NEURO PAGED, AWAITING CALL BACK FROM Rosa ARELLANO NEUROLOGIST
[2021-09-25 16:08] LABS: BASOPHILS % (AUTO) 0.3 % (0.0-2.0); EOSINOPHILS % (AUTO) 0.1 % (0.0-6.0); HEMATOCRIT 33 % (33-45); HEMOGLOBIN 10.8 g/dL (11.5-14.8); LYMPHOCYTES # (AUTO) 2.9 K/uL (0.8-4.8); LYMPHOCYTES % (AUTO) 19.9 % (20.0-44.0); MEAN CORPUSCULAR HGB CONC 32 g/dl (31.0-36.0); MEAN CORPUSCULAR VOLUME 84 fL (82-100); MONOCYTES # (AUTO) 1.1 K/uL (0.1-1.30); MONOCYTES % (AUTO) 7.5 % (2.0-12.0); NEUTROPHILS # (AUTO) 10.6 K/uL (1.8-8.9); NEUTROPHILS % (AUTO) 72.2 % (43.0-81.0); PLATELET COUNT (AUTO) 568 K/uL (150-450); RED BLOOD CELL COUNT(AUTO) 3.98 MIL/uL (4.0-5.2); WHITE BLOOD COUNT (AUTO) 14.6 K/uL (4.3-11.0)
[2021-09-25] MEDS ORDERED: ONDANSETRON HCL/PF 4 MG/2 ML VIAL ONE (16:12)
--- NOTE | 2021-09-25 16:14 | NUR ---
DR STERN, RT, RN AND BEARING MACHINE OPERATOR AT BEDSIDE FOR INTUBATION
[2021-09-25 16:16] LABS: CALCIUM, SERUM 8.9 mg/dL (8.5-10.1); CARBON DIOXIDE 26 mmol/L (21-32); CHLORIDE 101 mmol/L (98-107); CREATININE 0.8 mg/dL (0.6-1.3); GLUCOSE 165 mg/dL (74-106); POTASSIUM 3.4 mmol/L (3.5-5.1); SODIUM SERUM 136 mmol/L (136-145); UREA NITROGEN, BLOOD 14 mg/dL (7-18)
[2021-09-25] MEDS ORDERED: PROPOFOL 100 ML ONE (16:18)
--- NOTE | 2021-09-25 16:24 | NUR ---
CALLED DR العراقي LEFT VOICEMAIL, SENT IMAGES, MALCOM STATES WILL CALL BACK
[2021-09-25] MEDS ORDERED: LEVETIRACETAM (500MG) 500 MG in IV NS 0.9% 100 ML IV ONE (16:30)
[2021-09-25] MEDS ORDERED: ROCURONIUM BROMIDE 100 MG/10 ML VIAL IV ONE (16:30)
[2021-09-25] MEDS ORDERED: PROPOFOL 100 ML IV ONE (16:30)
--- NOTE | 2021-09-25 16:30 | NUR ---
COVID ANTIGEN SWAB DONE AND SENT TO THE LAB
--- NOTE | 2021-09-25 16:40 | NUR ---
SPOKE WITH CM [phone] PT WILL [place] ANABAPTIST ASKING FOR FACESHETT, CLINICALS, AND COVID STATUS ONCE AVAILABLE FAX NUMBER: [phone]
--- NOTE | 2021-09-25 16:48 | NUR ---
BED GIVEN [id number] NUMBER FOR REPORT [phone]
--- NOTE | 2021-09-25 16:52 | NUR ---
VENT SETTINGS MODE: A/C VC FIO2: 50 TIDAL VOLUME: 450 RATE: 18 :E 1:2 PEEP 5 PMAX: 60
--- NOTE | 2021-09-25 17:03 | NUR ---
ESTIMATED TIME FOR TRANSPORTATION IS 1 HOUR AND 15 MINS
--- NOTE | 2021-09-25 17:03 | NUR ---
Buddy lauren in [facility] - 09/25/21 at 1709 by TYESHA ESTIMATED TIME FOR DELIVER IS 1 HOUR AND 15 MINS
[2021-09-25] MEDS ORDERED: ROCURONIUM BROMIDE 50 MG/5 ML IV ONE (17:06)
--- NOTE | 2021-09-25 17:11 | NUR ---
Buddy lauren in [facility] - 09/25/21 at 1713 by TYESHA ROMAINE NUMBER FOR REPORT [phone]
--- NOTE | 2021-09-25 17:17 | NUR ---
NEW NUMBER FOR REPORT [phone]
--- NOTE | 2021-09-25 17:25 | NUR ---
REPORT GIVEN TO KISHOR FOR SALVADOR
[2021-09-25 18:01] LABS: ABG BASE EXCESS -3.2 mmol/L; ABG PCO2 31.7 mmHg (35.0-45.0); ABG PH 7.425 (7.350-7.450); COHb 0.3 % (0.5-1.5); MetHb 0.2 % (0.0-1.5); PEEP,BG 5 cm H2O; SITE, ABG Right Radial; VENT MODE, BG AC 50%; VT, ABG 450 mL
--- NOTE | 2021-09-25 18:03 | NUR ---
UPDATED ETA 30 MINS (1830).
--- NOTE | 2021-09-25 18:11 | NUR ---
RT Pt intubated in bed #5 ER by Charly Serrano. Pt intubated with 7.0 ETT 22cm @ Lip. Tube placement confirmed with Xray. No changes made post ABG 1hr post intubation. Tolerating current settings well. Ambu bag at bedside. Will continue to monitor.
[2021-09-25 18:15] VITALS: BP 138/76
--- NOTE | 2021-09-25 18:32 | NUR ---
REPORT GIVEN TO [facility] NURSE RUIZ AND THE AMBULANCE STAFF.
--- NOTE | 2021-09-25 18:40 | NUR ---
PICKED UP BY TRANSPORT IN STABLE CONDITION
== END 2021-09-25 19:06 | disposition short-term general hospital (02) ==
LOC: ER 15:55
DX: I62.01 Nontraumatic acute subdural hemorrhage (principal); G81.94 Hemiplegia, unspecified affecting left nondominant side; R53.1 Weakness; R41.82 Altered mental status, unspecified; D72.829 Elevated white blood cell count, unspecified; R29.713 NIHSS score 13; R58 Hemorrhage, not elsewhere classified; Z20.822 Contact with and (suspected) exposure to COVID-19; Z86.73 Personal history of transient ischemic attack (TIA), and cerebral infarction without residual deficits
CPT/HCPCS: 99291; 31500; 96365; 70450; 87426; 99292; 82803; 85025; 80048; 36415; 84484; 85730; 94799; 51702; 71045; 93005; 36600; J2405; J7030 ×2; J3490 ×2; J1953; C9803